=== PATIENT | female | born 1960 | race Native Hawaiian/Other Pacific Islander ===

== ENCOUNTER 2021-06-16 07:33 | Outpatient (CLI) | payer BC, OTHER ==
[~2021-06-16 07:33] MED LIST: ACET-655 PO; LEVO500T PO; MUCINEX D1 TA1 OR; ZYRTEC ALLGY10 MG OR
== END 2021-06-16 21:41 | disposition home or self-care (01) ==
LOC: LAB 07:33
PROVIDERS: ATTEND Internal Medicine
DX: Z20.822 Contact with and (suspected) exposure to COVID-19 (principal)
CPT/HCPCS: 87635; G2023; U0003